=== PATIENT | male | born 1970 | race Caucasian/White ===

== ENCOUNTER 2018-09-09 19:58 | Emergency (ER) | payer BC ==
[2018-09-09 20:18] LABS: #Basophils 0.1 thou/uL (0.0-0.2); #Eosinphils 0.3 thou/uL (0.0-0.7); #Lymphocytes 1.9 thou/uL (1.20-3.40); #Monocytes 0.4 thou/uL (0.11-0.59); #Neutrophils 5.1 thou/uL (1.40-6.50); %Basophils 1.7 % (0.0-1.0); %Eosinophils 3.8 % (0.0-10.0); %Lymphocytes 24.5 % (21.0-51.0); %Monocytes 5.6 % (0.0-10.0); %Neutrophils 64.6 % (42.0-75.0); Hemoglobin 16.8 g/dL (14.0-18.0); Mean Corpuscular HGB CONC 36.2 g/dL (32.0-36.0); Mean Corpuscular Hemoglobin 29.8 pg (27.0-31.0); Mean Corpuscular Volume 82.3 fL (78.0-98.0); Mean Platelet Volume 8.2 fL (7.4-10.4); Platelet Count 166 thou/uL (130-400); RBC Distribution Width 10.3 % (11.5-14.5); Red Blood Cell (RBC) Count 5.64 mill/uL (4.70-6.10); White Blood Cell (WBC) Count 7.9 thou/uL (4.8-10.8)
[2018-09-09 20:30] LABS: ALT (SGPT) 34 U/L (8-55); AST (SGOT) 23 U/L (5-34); Albumin 4.5 g/dL (3.5-5.0); Alkaline Phosphatase 89 U/L (40-150); Anion Gap 19 mmol/L (10-20); BUN (Urea Nitrogen) 13 mg/dL (8.9-20.6); Bilirubin, Total 0.7 mg/dL (0.2-1.2); Calc. Creatinine Clearance 0 mL/min (70-130); Calcium 9.8 mg/dL (7.8-10.44); Carbon Dioxide 21 mmol/L (22-29); Chloride 99 mmol/L (98-107); Estimated GFR-MDRD 71; Globulin 3.3 g/dL (2.4-3.5); Glucose 273 mg/dL (70-105); Potassium 3.8 mmol/L (3.5-5.1); Protein, Total 7.8 g/dL (6.0-8.3); Sodium 135 mmol/L (136-145)
--- NOTE | 2018-09-09 21:36 | RAD ---
UPRIGHT PORTABLE CHEST ONE VIEW: 09/09/18 HISTORY: 47-year-old male with history of palpitations. Borderline cardiomegaly. Mild bilateral vascular congestion. No confluent pneumonia, overt edema, or significant pleural effusion. IMPRESSION: Mild cardiomegaly and vascular congestion without confluent pneumonia or overt edema. POS: [facility]
== END 2018-09-09 21:59 | disposition home or self-care (01) ==
LOC: SCSER 19:58
DX: R00.2 Palpitations (principal); E11.9 Type 2 diabetes mellitus without complications; Z87.891 Personal history of nicotine dependence; Z79.84 Long term (current) use of oral hypoglycemic drugs; Z79.82 Long term (current) use of aspirin; Z79.899 Other long term (current) drug therapy
CPT/HCPCS: 71045; 80053; 83880; 84484; 85025; 93005; 96360

== ENCOUNTER 2019-03-26 16:00 | Outpatient (CLI) | payer BC | END 2019-03-26 16:01 | disposition home or self-care (01) | LOC: SLEEPLAB 16:00 | PROVIDERS: ATTEND Internal Medicine | DX: G47.33 Obstructive sleep apnea (adult) (pediatric) (principal); R53.83 Other fatigue; R09.89 Other specified symptoms and signs involving the circulatory and respiratory systems; R51 Headache; K21.9 Gastro-esophageal reflux disease without esophagitis; R35.1 Nocturia; E11.9 Type 2 diabetes mellitus without complications; R06.83 Snoring; G47.00 Insomnia, unspecified; E66.9 Obesity, unspecified; Z68.39 Body mass index [BMI] 39.0-39.9, adult | CPT/HCPCS: 95806 ==

== ENCOUNTER 2019-04-19 09:02 | Day surgery (SDC) | payer BC ==
[2019-04-16 11:12] VITALS: BMI 37.4
[2019-04-19 10:02] LABS: #Basophils 0.1 thou/uL (0.0-0.2); #Eosinphils 0.2 thou/uL (0.0-0.7); #Lymphocytes 1.6 thou/uL (1.20-3.40); #Monocytes 0.4 thou/uL (0.11-0.59); #Neutrophils 4.2 thou/uL (1.40-6.50); %Eosinophils 3.5 % (0.0-10.0); %Lymphocytes 24.5 % (21.0-51.0); %Monocytes 6.5 % (0.0-10.0); %Neutrophils 64.6 % (42.0-75.0); Hemoglobin 16.5 g/dL (14.0-18.0); Mean Corpuscular HGB CONC 33.4 g/dL (32.0-36.0); Mean Corpuscular Hemoglobin 30.7 pg (27.0-31.0); Mean Corpuscular Volume 91.8 fL (78.0-98.0); Mean Platelet Volume 7.1 fL (7.4-10.4); Platelet Count 162 thou/uL (130-400); RBC Distribution Width 11.6 % (11.5-14.5); Red Blood Cell (RBC) Count 5.37 mill/uL (4.70-6.10); White Blood Cell (WBC) Count 6.5 thou/uL (4.8-10.8)
[2019-04-19 10:06] LABS: PTT 26.3 SEC (22.9-36.1); Prothrombin Time 13.4 SEC (12.0-14.7)
[2019-04-19 10:17] LABS: Anion Gap 13 mmol/L (10-20); BUN (Urea Nitrogen) 11 mg/dL (8.9-20.6); Calc. Creatinine Clearance 158 mL/min (70-130); Calcium 9.7 mg/dL (7.8-10.44); Carbon Dioxide 27 mmol/L (22-29); Chloride 102 mmol/L (98-107); Estimated GFR-MDRD 79; Glucose 186 mg/dL (70-105); Potassium 4.2 mmol/L (3.5-5.1); Sodium 138 mmol/L (136-145)
[2019-04-19] MEDS ORDERED: Heparin 10,000 UNITS/1 ML VIAL ONE (12:19)
[2019-04-19] MEDS ORDERED: Lidocaine 1% (PF) 30 ML VIAL ONE (12:21)
[2019-04-19] MEDS ORDERED: Midazolam HCl 2 mg/2 ml Vial ONE (12:24)
[2019-04-19] MEDS ORDERED: Fentanyl 100 MCG/2 ML VIAL ONE (12:25)
[2019-04-19] MEDS ORDERED: Propofol 500 MG/50 ML VIAL ONE (12:25)
[2019-04-19] MEDS ORDERED: Isoproterenol 0.2 MG/1 ML AMP ONE (13:14)
[2019-04-19] MEDS ORDERED: Propofol 1,000 MG/100 ML VIAL IV ONE (13:56)
--- NOTE | 2019-04-19 18:09 | OP ---
DATE OF PROCEDURE: 04/19/2019 PROCEDURES PERFORMED: Electrophysiology study and radiofrequency ablation report. ATTENDING PHYSICIAN: Dr. Bryan Garcia. REASON FOR PROCEDURE: Mr. Gould is a 48-year-old man with recurrent tachyarrhythmias and event monitor documented SVT, for EP study and radiofrequency ablation. DESCRIPTION OF PROCEDURE: The patient received deep sedation by Anesthesia specialist. Left and right femoral venous areas were prepped, draped, and anesthetized with subcutaneous lidocaine. With ultrasound guidance, the left femoral vein was cannulated x2, and a 6 and 8-Yi short sheaths were introduced, through which an octapolar and a decapolar catheter were advanced to the right atrium, right ventricle, His bundle, and CS position. Pacing, mapping, and recording were performed at each location with the following findings. Baseline rhythm was sinus rhythm at 697 milliseconds, NM 164 milliseconds, QRS 67 milliseconds, QT 333 milliseconds, AH 118 milliseconds, HV 52 millisecond, sinus node recovery time was 1108 milliseconds. Retrograde Wenckebach cycle length was 260, anterograde was 320 milliseconds. Concentric retrograde VA conduction was seen in the baseline. No definite dual AV pancho physiology was noted. Burst atrial pacing though was able to induce an atrial flutter with short RP interval. The initial RP was 120 milliseconds, later recent transition of the same 1:1 tachycardia with from 110 milliseconds to 80 milliseconds VA timing. The activation initially was by the His bundle. The area become close to the CS os. Burst ventricular overdrive pacing was attempted, but we were unable to entrain tachycardia. Ventricular overdrive pacing reliably terminated the AV pancho reentrant tachycardia, but ventricular pacing maneuvers did reveal no evidence of atrial tachycardia. Following this, through the right-sided femoral venous access, an 8-Yi short sheath was introduced under ultrasound guidance and a 4-mm ablation catheter was advanced to the right atrium. 3D map of the right atrium, His bundle, and CS positions were delineated. Following that, a slow pathway ablation was performed at 40 thompson, 50 degrees setting. A total of ablation delivered was 5 ablation. Total duration was 1 minute 53 seconds with the settings as well. Junctional beats were observed during the [place] in the end of the case of burst atrial pacing and on and off Isuprel was attempted, but did not able to reinduce the previously observed tachycardia. AV Wenckebach cycle did not change. At the end of the case, the cardiac silhouette did not reveal any changes. The intact AV pancho conduction is seen and the catheter and sheaths were pulled in the laborer steel handling. CONCLUSION: 1. Successful induction of narrow complex supraventricular tachycardia with short VA timing, suggestive of atrioventricular pancho reentrant tachycardia, cycle length was 380 milliseconds. 2. Slow pathway modification eliminating inducibility. 3. No evidence of accessory pathway observed. 4. Normal sinus and atrioventricular pancho function pre and post ablation. PLAN: Decrease AV pancho blocking agents and monitor for recurrent arrhythmias. Job ID: [id number]
== END 2019-04-19 17:48 | disposition home or self-care (01) ==
LOC: CCL 09:02
PROVIDERS: ATTEND Internal Medicine Cardiovascular Disease
PROC: 4A0234Z Measurement of Cardiac Electrical Activity, Percutaneous Approach (ICD-10-PCS; principal; 2019-04-19)
PROC: 02583ZZ Destruction of Conduction Mechanism, Percutaneous Approach (ICD-10-PCS; principal; 2019-04-19)
PROC: 02K83ZZ Map Conduction Mechanism, Percutaneous Approach (ICD-10-PCS; principal; 2019-04-19)
PROC: 4A023FZ Measurement of Cardiac Rhythm, Percutaneous Approach (ICD-10-PCS; principal; 2019-04-19)
DX: I47.1 Supraventricular tachycardia (principal); E11.9 Type 2 diabetes mellitus without complications; E66.9 Obesity, unspecified; Z68.37 Body mass index [BMI] 37.0-37.9, adult; Z79.82 Long term (current) use of aspirin; Z79.84 Long term (current) use of oral hypoglycemic drugs; Z79.899 Other long term (current) drug therapy
CPT/HCPCS: 76942; 80048; 85025; 85610; 85730; 93005; 93010; 93613; 93623; 93653; C1730; C1769; J1644; J2001; J2250; J2704; J3010